=== PATIENT | male | born 1970 | race Two or more races ===

== ENCOUNTER 2018-11-23 13:22 | Emergency (ER) | payer SELFPAY ==
[~2018-11-23] VITALS: Ht 165.1 cm; Wt 88.0 kg
[2018-11-23 16:20] VITALS: BP 135/91
[2018-11-23] MEDS ORDERED: TETANUS, DIPHTHERIA, PERTUSSIS VAC/PF 0.5ML (>7YR OLD) IM ONE (16:45)
[2018-11-23] MEDS ORDERED: ACETAMINOPHEN 325MG TABLET PO ONE (17:00)
== END 2018-11-23 17:49 | disposition left against medical advice (07) ==
LOC: ER 13:22
DX: S09.8XXA Other specified injuries of head, initial encounter (principal); S11.91XA Laceration without foreign body of unspecified part of neck, initial encounter; S00.83XA Contusion of other part of head, initial encounter; X99.1XXA Assault by knife, initial encounter; Y93.89 Activity, other specified; Y92.89 Other specified places as the place of occurrence of the external cause
CPT/HCPCS: 90471; 90715; 99283